=== PATIENT | male | born 1955 | race African-American/Black ===

== ENCOUNTER → 2017-02-18 | Outpatient (CLI) | payer OTHER ==
[~2017-02-18] VITALS: Ht 176.5 cm; Wt 86.6 kg
[~2017-02-18] MED LIST: AMLO5TAB2 PO; CHLORHEXIDINE GLUCONATE 2 % 1 PACK (2 CLOTHS) TOPICAL PRN; CHOL1CAP8 PO; FISH100020 PO; INSULIN HUMAN REGULAR 1,000 UNITS/10 ML VIAL SQ PRN; LACTATED RINGER'S 1000 ML IV PRN; LISI-515 PO; LOVA40TA PO; MAGN500T5 PO; METOPROLOL TARTRATE 25 MG TAB PO PRN; POVIDONE IODINE 5% (ANTISEPSIS KIT) 4 APPLICATIONS EACH NARE PRN; PROPOFOL 200 MG/20 ML AMP IV PUSH ONE; SODIUM CHLORID 0.9% 500 ML IV PRN
--- NOTE | 2017-02-18 13:22 | EKG ---
Date Performed: 02/18/2017 Time Performed: 12:35:50 PTAGE: 61 years EKG: Sinus rhythm RIGHT BUNDLE BRANCH BLOCK LEFT ANTERIOR FASCICULAR BLOCK ABNORMAL ECG NO PREVIOUS TRACING DOCTOR: Petr Burr Interpretating Date/Time 02/18/2017 13:19:55
[2017-02-18 14:59] VITALS: TEMP 97.5
--- NOTE | 2017-02-18 15:19 | GIPROC ---
[facility] [address] [facility]. [facility], [id number] COLONOSCOPY PROCEDURE REPORT EXAM DATE: 02/18/2017 PATIENT NAME: Tam Bland MR #: [id number] BIRTHDATE: 1955 ENDOSCOPIST: Tavon Mittal MD ORDER #: [id number] TAKE OUT WAITER: Reny Stover and Blade Akers STATUS: outpatient INDICATIONS: The patient is a 61 yr old male here for a colonoscopy due to high risk patient with personal history of colonic polyps PROCEDURE PERFORMED: Colonoscopy with biopsy MEDICATIONS: None and Per Anesthesia. PREP QUALITY: fair PREP TYPE:MoviPrep ESTIMATED BLOOD LOSS: None CONSENT: The patient understands the risks and benefits of the procedure and understands that these risks include, but are not limited to: sedation, allergic reaction, infection, perforation and/or bleeding. Alternative means of evaluation and treatment include, among others: physical exam, x-rays, and/or surgical intervention. The patient elects to proceed with this endoscopic procedure. medical equipment was checked for proper function. Hand hygiene and appropriate measures for infection prevention was taken. After the risks, benefits and alternatives of the procedure were thoroughly explained, Informed consent was verified, confirmed and timeout was successfully executed by the treatment team. A digital exam revealed no abnormalities of the rectum The Pentax [id number] endoscope was introduced through the anus and advanced to the ileum. The instrument was then slowly withdrawn as the colon was fully examined. COLON FINDINGS: A sessile polyp measuring 2 mm in size was found at the splenic flexure. A biopsy was performed using cold forceps. A sessile polyp measuring 2 mm in size was found in the distal sigmoid colon. A biopsy was performed using cold forceps. Mild diverticulosis was noted in the descending colon and sigmoid colon. Small internal hemorrhoids were found. The colon mucosa was otherwise normal. Retroflexed views revealed no abnormalities The scope was then completely withdrawn from the patient and the procedure terminated. PROCEDURE WITHDRAWAL TIME:14minutes ADVERSE EVENTS: There were no complications. IMPRESSIONS: 1. A sessile polyp was found at the splenic flexure; biopsy was performed using cold forceps 2. A sessile polyp was found in the distal sigmoid colon; biopsy was performed using cold forceps 3. Mild diverticulosis was noted in the descending colon and sigmoid colon 4. Small internal hemorrhoids 5. The colon mucosa was otherwise normal 6. Retroflexed views revealed no abnormalities 7. Revealed no abnormalities of the rectum RECOMMENDATIONS: 1. Await biopsy results. Biopsy results will not be ready for 7-10 days. If you don't hear from us in two weeks, call our office for results. 2. High fiber diet 3. Follow-up: [facility] Clinic 1 month(s) RECALL: NONE Tavon Mittal MD eSigned: Tavon Mittal MD 02/18/2017 3:19 PM cc: Orion Del Valle M.D. PATIENT NAME: Tam Bland MR#: [id number]
[2017-02-18 15:21] VITALS: BP 99/66; PULSE 80; RESP 18; O2SAT 95
== END ==
LOC: HEND 11:42
PROVIDERS: ATTEND Internal Medicine Gastroenterology
DX: Z12.11 Encounter for screening for malignant neoplasm of colon (principal); Z86.010 Personal history of colon polyps; D12.3 Benign neoplasm of transverse colon; D12.5 Benign neoplasm of sigmoid colon; K57.90 Diverticulosis of intestine, part unspecified, without perforation or abscess without bleeding; K64.8 Other hemorrhoids; I45.2 Bifascicular block
CPT/HCPCS: 00810; 45380; 88305; 93005; J7120